=== PATIENT | female | born 1990 | race Caucasian/White ===

== ENCOUNTER 2022-10-31 04:02 | Day surgery (SDC) | payer BC, OTHER ==
[2022-10-27 15:52] LABS: MCH 30.3 pg (25.7-33.7); MCHC 32.5 g/dl (32.0-36.0); MEAN CELL VOLUME 93.3 fl (80-96); MEAN PLT VOLUME 9.9 fl (7.5-11.1); PLATELET COUNT 224 10^3/uL (134-434); RBC 3.65 M/mm3 (3.60-5.2); WHITE BLOOD COUNT 12.1 K/mm3 (4.0-10.0)
[2022-10-27 15:55] LABS: CALCIUM 8.6 mg/dL (8.5-10.1)
[2022-10-27 15:59] LABS: CREATININE 0.7 mg/dL (0.55-1.3)
[2022-10-27 16:28] LABS: INR 1.01 (0.83-1.09); PROTHROMBIN TIME (PATIENT) 11.7 SEC (9.7-13.0)
[2022-10-27 17:44] VITALS: BMI 18.1
[2022-10-31] MEDS ORDERED: BUPIVACAINE HCL/PF 0.25% (2.5MG/ML) 10 ML VIAL ONE (08:06)
[2022-10-31] MEDS ORDERED: ONDANSETRON 4 MG/2 ML VIAL IVPUSH PRN (08:52)
[2022-10-31] MEDS ORDERED: oxyCODONE HCL 5 MG TABLET PO PRN (08:52)
[2022-10-31] MEDS ORDERED: LACTATED RINGERS SOLUTION 1,000 ML IV SCH (09:00)
[2022-10-31] MEDS ORDERED: HEPARIN NA (PORCINE) 5,000 UNITS/ML 1ML VIAL ONE (09:40)
[2022-10-31] MEDS ORDERED: cefOXitin SODIUM 2 GM VIAL (RESTRICTED TO ID) IVPB ONE ×2 (09:41→09:45)
[2022-10-31] MEDS ORDERED: HEPARIN NA (PORCINE) 5,000 UNITS/ML 1ML VIAL SQ ONE (09:45)
[2022-10-31 12:41] VITALS: RESP 18
[2022-10-31] MEDS ORDERED: oxyCODONE HCL 5 MG TABLET ONE (13:38)
[2022-10-31 14:03] VITALS: BP 116/58; PULSE 79; TEMP 98.3
== END 2022-10-31 15:05 | disposition home or self-care (01) ==
LOC: JASU-SURG 04:02
PROVIDERS: ATTEND Surgery
PROC: 06BY4ZC Excision of Hemorrhoidal Plexus, Percutaneous Endoscopic Approach (ICD-10-PCS; principal; 2022-10-31 09:00)
DX: K64.8 Other hemorrhoids (principal)
CPT/HCPCS: 36415; 80048; 81025; 84703; 85027; 85610; 85730; 86850; 86900; 86901; 88304-TC; 88341-TC; 88342-TC; 94760; J1644